=== PATIENT | female | born 1940 | race Two or more races ===

== ENCOUNTER 2021-02-21 14:00 | Outpatient (CLI) | payer OTHER ==
[~2021-02-21 14:00] MED LIST: BRILINTA60 MG; COREG CR10 MG; LIPITOR20 MG
== END 2021-02-21 14:06 | disposition home or self-care (01) ==
LOC: RAD 14:00
PROVIDERS: ATTEND Physical Medicine & Rehabilitation
DX: S62.303A Unspecified fracture of third metacarpal bone, left hand, initial encounter for closed fracture (principal); M25.542 Pain in joints of left hand; Y99.8 Other external cause status

== ENCOUNTER 2024-02-20 09:11 | Outpatient (CLI) | payer OTHER | END 2024-02-20 09:15 | disposition home or self-care (01) | LOC: SONOGRAMA 09:11 | PROVIDERS: ATTEND Pathology Anatomic Pathology & Clinical Pathology | DX: R22.31 Localized swelling, mass and lump, right upper limb (principal) ==

== ENCOUNTER → 2024-11-08 | Emergency (ER) | payer OTHER ==
[~2024-11-08] VITALS: Ht 165.1 cm; Wt 45.4 kg
[~2024-11-08] MED LIST changes: +IPRATROPIUM/ALBUTEROL SULFATE 3 ML AMPUL.NEB IH SCH
[2024-11-08 18:08] LABS: BASO % 0.4 % (0.1-1.2); HEMATOCRIT 38.4 % (34.1-44.9); HEMOGLOBIN 12.9 g/dL (11.2-15.7); LYMPH # 0.54 (1.18-3.74); LYMPH % 7.9 % (19.3-53.1); MEAN CORPUSCULAR HEMOGLOBIN 29.5 pg (25.6-32.2); MONO # 0.23 (0.24-0.82); MONO % 3.4 % (4.7-12.5); NEUT # 5.98 (1.56-6.13); PLATELET COUNT 230 K/uL (163-369); RED BLOOD COUNT 4.37 M/uL (3.93-5.22)
[2024-11-08 18:39] LABS: ALBUMIN 2.7 gm/dL (3.4-5.0); BILIRUBIN TOTAL 0.47 mg/dL (0.3-1.2); CALCIUM 8.9 mg/dL (8.5-10.1); CREATININE SERUM 0.5 mg/dL (0.55-1.02); GFR 117.26; GLOBULINA 3.1 G/DL (2.4-3.5); POTASSIUM 4.63 mEq/L (3.5-5.1); TOTAL PROTEIN 5.8 gm/dL (6.4-8.2)
[2024-11-08 19:05] LABS: ABG PH 7.436 (7.35-7.45); ABG PO2 68.8 mmHg (80-100); BASE EXCESS 1.5 mmol/l; BICARBONATE 25.7 mmol/l (23-25); SaO2 94.2 %; Tco2 26.9 mmol/l
[2024-11-08 19:08] LABS: allen test SATISFACTORY; mode ROOM AIR; o2 21 %; puncture site RADIAL LEFT
[2024-11-08 19:19] LABS: INFLUENZA B AG NEGATIVE (NEGATIVE)
[2024-11-08 19:20] LABS: INFLUENZA A AG POSITIVE (NEGATIVE)
[2024-11-08 19:23] LABS: COVID-19 AG NEGATIVE (NEGATIVE)
== END | disposition home or self-care (01) ==
LOC: ER 15:12
DX: J10.1 Influenza due to other identified influenza virus with other respiratory manifestations (principal); C34.90 Malignant neoplasm of unspecified part of unspecified bronchus or lung; R06.02 Shortness of breath